=== PATIENT | male | born 1985 | race Caucasian/White ===

== ENCOUNTER 2022-09-08 13:52 | Inpatient (IN) | payer OTHER ==
[2022-09-08 15:23] VITALS: BMI 24.3
[2022-09-08] MEDS ORDERED: NICOTINE 10 MG CARTRIDGE (INHALER) IH PRN (17:34)
[2022-09-08] MEDS ORDERED: DICYCLOMINE HCL 10 MG CAPSULE PO PRN (17:34)
[2022-09-08] MEDS ORDERED: BISMUTH SUBSALICYLATE 524 MG/30 ML PO PRN (17:34)
[2022-09-08] MEDS ORDERED: ACETAMINOPHEN 325 MG TABLET (FP) PO PRN ×2 (17:34)
[2022-09-08] MEDS ORDERED: POLYETHYLENE GLYCOL (HEALTHYLAX) 3350 17 GM PACKET PO PRN (17:34)
[2022-09-08] MEDS ORDERED: MAG HYDROX/AL HYDROX/SIMETH 30 ML UNIT-DOSE CUP PO PRN (17:34)
[2022-09-08] MEDS ORDERED: MAGNESIUM HYDROX 2400MG/30ML ORAL SUSPENSION 30 ML CUP PO PRN (17:34)
[2022-09-08] MEDS ORDERED: BENZOCAINE/MENTHOL (CHLORASEPTIC ) LOZENGE MM PRN (17:34)
[2022-09-08] MEDS ORDERED: hydrOXYzine PAMOATE 25 MG CAPSULE (FP) PO PRN (17:34)
[2022-09-08] MEDS ORDERED: LOPERAMIDE HCL 2 MG CAPSULE PO PRN (17:34)
[2022-09-08] MEDS ORDERED: ONDANSETRON *ODT* 4 MG TABLET SL PRN (17:34)
[2022-09-08] MEDS ORDERED: levETIRAcetam 500 MG/5 ML ORAL SOLUTION (UNIT-DOSE CUPS) PO SCH (18:00)
[2022-09-08] MEDS ORDERED: LORazepam 2 MG TABLET PO ONE ×2 (18:30→20:00)
[2022-09-08] MEDS ORDERED: LORazepam 1 MG TABLET PO PRN (18:30)
[2022-09-08] MEDS: levETIRAcetam 500 MG/5 ML ORAL SOLUTION (UNIT-DOSE CUPS) PO SCH (21:21)
[2022-09-08] MEDS: LORazepam 2 MG TABLET PO SCH (23:28)
[2022-09-08] MEDS: MELATONIN 5 MG TABLETS PO SCH (23:29)
[2022-09-08] MEDS: THIAMINE HCL 100 MG TABLET (FP) PO SCH (23:29)
[2022-09-08] MEDS: lamoTRIgine 100 MG TABLET PO SCH (23:39)
[2022-09-09] MEDS: levETIRAcetam 500 MG/5 ML ORAL SOLUTION (UNIT-DOSE CUPS) PO SCH ×3 (06:23→20:34)
[2022-09-09] MEDS: lamoTRIgine 100 MG TABLET PO SCH ×3 (06:25→23:30)
[2022-09-09] MEDS: LORazepam 2 MG TABLET PO SCH ×4 (06:25→23:31)
[2022-09-09 09:28] LABS: HEMATOCRIT 39.4 % (35.4-49); HEMOGLOBIN 13.3 GM/dL (11.7-16.9); MCH 34.7 pg (25.7-33.7); MCHC 33.7 g/dl (32.0-35.9); MEAN CELL VOLUME 102.9 fl (80-96); PLATELET COUNT 105 10^3/uL (134-434); RBC 3.83 M/mm3 (4.00-5.60); RDW 14.9 % (11.9-15.9); WHITE BLOOD COUNT 2.9 K/mm3 (4.0-10.0)
[2022-09-09 10:16] LABS: ALBUMIN 3.7 g/dl (3.4-5.0); BLOOD UREA NITROGEN 9.7 mg/dL (7-18)
[2022-09-09 10:19] LABS: CREATININE 0.6 mg/dL (0.55-1.3)
[2022-09-09 10:21] LABS: BILIRUBIN,TOTAL 2.5 mg/dL (0.2-1); TOT PROT 7.2 g/dl (6.4-8.2)
[2022-09-09] MEDS: PRENATAL VITAMINS W/ FOLIC ACID TABLET (FP) PO SCH (10:45)
[2022-09-09] MEDS: NICOTINE 7 MG/24 HOURS TOPICAL PATCH TD SCH (10:46)
[2022-09-09] MEDS: THIAMINE HCL 100 MG TABLET (FP) PO SCH (23:30)
[2022-09-09] MEDS: MELATONIN 5 MG TABLETS PO SCH (23:31)
[2022-09-10] MEDS: LORazepam 1 MG TABLET PO SCH ×4 (05:58→22:47)
[2022-09-10] MEDS: lamoTRIgine 100 MG TABLET PO SCH ×3 (05:59→22:48)
[2022-09-10] MEDS: levETIRAcetam 500 MG/5 ML ORAL SOLUTION (UNIT-DOSE CUPS) PO SCH ×3 (06:00→17:42)
[2022-09-10] MEDS: NICOTINE 7 MG/24 HOURS TOPICAL PATCH TD SCH (10:41)
[2022-09-10] MEDS: PRENATAL VITAMINS W/ FOLIC ACID TABLET (FP) PO SCH (10:41)
[2022-09-10] MEDS: MELATONIN 5 MG TABLETS PO SCH (22:47)
[2022-09-10] MEDS: THIAMINE HCL 100 MG TABLET (FP) PO SCH (22:48)
[2022-09-11] MEDS ORDERED: LORazepam 0.5 MG TABLET PO PRN
[2022-09-11] MEDS: levETIRAcetam 500 MG/5 ML ORAL SOLUTION (UNIT-DOSE CUPS) PO SCH ×3 (06:16→17:20)
[2022-09-11] MEDS: LORazepam 0.5 MG TABLET PO SCH ×4 (06:17→22:54)
[2022-09-11] MEDS: lamoTRIgine 100 MG TABLET PO SCH ×3 (06:17→22:54)
[2022-09-11] MEDS: PRENATAL VITAMINS W/ FOLIC ACID TABLET (FP) PO SCH ×2 (10:38→10:42)
[2022-09-11] MEDS: NICOTINE 7 MG/24 HOURS TOPICAL PATCH TD SCH (10:39)
[2022-09-11 11:04] LABS: BILIRUBIN,DIRECT 0.6 mg/dL (0.0-0.2)
[2022-09-11 11:06] LABS: BILIRUBIN,TOTAL 1.2 mg/dL (0.2-1)
[2022-09-11] MEDS ORDERED: POTASSIUM CHLORIDE ORAL LIQUID 20 MEQ/15 ML PO ONE (13:30)
[2022-09-11] MEDS: MULTIVIT-MINERALS ORAL LIQUID PO SCH (13:38)
[2022-09-11] MEDS: LACTULOSE 20 GM/30 ML UDC (FOR ORAL USE ONLY) PO SCH ×3 (13:40→22:57)
[2022-09-11] MEDS: MELATONIN 5 MG TABLETS PO SCH (22:55)
[2022-09-11] MEDS: THIAMINE HCL 100 MG TABLET (FP) PO SCH (22:55)
[2022-09-11] MEDS: POTASSIUM CHLORIDE ORAL LIQUID 20 MEQ/15 ML PO SCH (22:57)
[2022-09-12] MEDS ORDERED: LORazepam 0.5 MG TABLET PO ONE (05:00)
[2022-09-12] MEDS: lamoTRIgine 100 MG TABLET PO SCH (05:48)
[2022-09-12] MEDS: levETIRAcetam 500 MG/5 ML ORAL SOLUTION (UNIT-DOSE CUPS) PO SCH ×2 (05:49→12:08)
[2022-09-12 09:14] VITALS: RESP 16
[2022-09-12] MEDS: MULTIVIT-MINERALS ORAL LIQUID PO SCH (10:37)
[2022-09-12] MEDS: POTASSIUM CHLORIDE ORAL LIQUID 20 MEQ/15 ML PO SCH (10:37)
[2022-09-12] MEDS: LACTULOSE 20 GM/30 ML UDC (FOR ORAL USE ONLY) PO SCH (10:37)
[2022-09-12] MEDS: NICOTINE 7 MG/24 HOURS TOPICAL PATCH TD SCH (10:43)
[2022-09-12 13:30] VITALS: BP 106/77; PULSE 97; TEMP 98
== END 2022-09-12 13:00 | disposition other institution (70) | DRG 775 ==
LOC: YASAS 13:52 → Y3N 18:48
PROVIDERS: ADMIT Allergy & Immunology; ATTEND Surgery
PROC: HZ2ZZZZ Detoxification Services for Substance Abuse Treatment (ICD-10-PCS; principal; 2022-09-09)
DX: F10.230 Alcohol dependence with withdrawal, uncomplicated (principal); F19.24 Other psychoactive substance dependence with psychoactive substance-induced mood disorder; F43.10 Post-traumatic stress disorder, unspecified; E87.6 Hypokalemia; G40.909 Epilepsy, unspecified, not intractable, without status epilepticus; D72.819 Decreased white blood cell count, unspecified; R74.8 Abnormal levels of other serum enzymes; Z87.891 Personal history of nicotine dependence; Z87.820 Personal history of traumatic brain injury; Z99.89 Dependence on other enabling machines and devices; Z56.0 Unemployment, unspecified; Z59.01 Sheltered homelessness; Z91.013 Allergy to seafood
CPT/HCPCS: 36415; 80053; 80177; 82140; 82247; 82248; 82728; 83540; 83550; 84132; 85027; 86780; 87811; C9803-CS; U0003; U0005

== ENCOUNTER 2022-09-12 13:17 | Inpatient (IN) | payer OTHER ==
[2022-09-12] MEDS ORDERED: P-EPHED 60MG/TRIPROLIDI 2.5MG TABLET PO PRN (15:10)
[2022-09-12] MEDS ORDERED: BENZOCAINE/MENTHOL (CHLORASEPTIC ) LOZENGE MM PRN (15:10)
[2022-09-12] MEDS ORDERED: POLYETHYLENE GLYCOL (HEALTHYLAX) 3350 17 GM PACKET PO PRN (15:10)
[2022-09-12] MEDS ORDERED: IBUPROFEN 400 MG TABLET (FP) PO PRN (15:10)
[2022-09-12] MEDS ORDERED: ACETAMINOPHEN 325 MG TABLET (FP) PO PRN (15:10)
[2022-09-12] MEDS ORDERED: MAGNESIUM HYDROX 2400MG/30ML ORAL SUSPENSION 30 ML CUP PO PRN (15:10)
[2022-09-12] MEDS ORDERED: MAG HYDROX/AL HYDROX/SIMETH 30 ML UNIT-DOSE CUP PO PRN (15:10)
[2022-09-12] MEDS ORDERED: guaiFENesin 200 MG/10 ML 10 ML UNIT-DOSE CUPS PO PRN (15:10)
[2022-09-12] MEDS ORDERED: LOPERAMIDE HCL 2 MG CAPSULE PO PRN (15:10)
[2022-09-12] MEDS: lamoTRIgine 100 MG TABLET PO SCH ×2 (15:45→21:46)
[2022-09-12] MEDS: LACTULOSE 20 GM/30 ML UDC (FOR ORAL USE ONLY) PO SCH ×2 (18:04→21:46)
[2022-09-12] MEDS: MELATONIN 5 MG TABLETS PO SCH (21:46)
[2022-09-12] MEDS: THIAMINE HCL 100 MG TABLET (FP) PO SCH (21:46)
[2022-09-12] MEDS: levETIRAcetam 500 MG/5 ML ORAL SOLUTION (UNIT-DOSE CUPS) PO SCH (21:49)
[2022-09-13] MEDS: lamoTRIgine 100 MG TABLET PO SCH ×3 (06:21→21:04)
[2022-09-13] MEDS: levETIRAcetam 500 MG/5 ML ORAL SOLUTION (UNIT-DOSE CUPS) PO SCH ×3 (06:22→18:35)
[2022-09-13] MEDS: LACTULOSE 20 GM/30 ML UDC (FOR ORAL USE ONLY) PO SCH ×2 (09:53→13:26)
[2022-09-13] MEDS: PRENATAL VITAMINS W/ FOLIC ACID TABLET (FP) PO SCH (09:56)
[2022-09-13] MEDS: MULTIVIT-MINERALS ORAL LIQUID PO SCH (09:56)
[2022-09-13 13:01] LABS: INR 1.09 (0.83-1.09); PROTHROMBIN TIME (PATIENT) 12.5 SEC (9.7-13.0)
[2022-09-13 13:16] LABS: ALBUMIN 3.8 g/dl (3.4-5.0); BLOOD UREA NITROGEN 8.3 mg/dL (7-18); CALCIUM 9.3 mg/dL (8.5-10.1)
[2022-09-13 13:19] LABS: BILIRUBIN,DIRECT 0.6 mg/dL (0.0-0.2); CREATININE 0.9 mg/dL (0.55-1.3); TOT PROT 7.2 g/dl (6.4-8.2)
[2022-09-13 13:21] LABS: BILIRUBIN,TOTAL 2.3 mg/dL (0.2-1)
[2022-09-13] MEDS ORDERED: POTASSIUM CHLORIDE TABS 20 MEQ TABLET.ER (FP) PO ONE ×3 (17:16→22:00)
[2022-09-13] MEDS: THIAMINE HCL 100 MG TABLET (FP) PO SCH (21:04)
[2022-09-13] MEDS: hydrOXYzine PAMOATE 25 MG CAPSULE (FP) PO PRN (21:04)
[2022-09-13] MEDS: MELATONIN 5 MG TABLETS PO SCH (21:04)
[2022-09-13] MEDS: RIFAXIMIN 550 MG TABLET PO SCH (21:06)
[2022-09-13] MEDS ORDERED: POTASSIUM CHLORIDE ORAL LIQUID 20 MEQ/15 ML PO SCH (22:00)
[2022-09-14] MEDS: levETIRAcetam 500 MG/5 ML ORAL SOLUTION (UNIT-DOSE CUPS) PO SCH ×3 (06:28→17:32)
[2022-09-14] MEDS: lamoTRIgine 100 MG TABLET PO SCH ×3 (06:28→21:23)
[2022-09-14] MEDS: RIFAXIMIN 550 MG TABLET PO SCH ×2 (09:06→21:23)
[2022-09-14] MEDS: MULTIVIT-MINERALS ORAL LIQUID PO SCH (09:08)
[2022-09-14] MEDS: PRENATAL VITAMINS W/ FOLIC ACID TABLET (FP) PO SCH (09:08)
[2022-09-14] MEDS ORDERED: POTASSIUM CHLORIDE TABS 20 MEQ TABLET.ER (FP) PO SCH ×2 (10:00→14:00)
[2022-09-14 12:17] LABS: CREATININE 0.7 mg/dL (0.55-1.3)
[2022-09-14 12:18] LABS: ALBUMIN 3.8 g/dl (3.4-5.0); BLOOD UREA NITROGEN 8.3 mg/dL (7-18)
[2022-09-14 12:19] LABS: TOT PROT 7.2 g/dl (6.4-8.2)
[2022-09-14 12:21] LABS: CALCIUM 9.3 mg/dL (8.5-10.1)
[2022-09-14] MEDS ORDERED: MULTIVIT-MINERALS ORAL LIQUID PO PRN (12:45)
[2022-09-14] MEDS: POTASSIUM CHLORIDE ORAL LIQUID 20 MEQ/15 ML PO SCH ×2 (14:14→17:32)
[2022-09-14] MEDS: MELATONIN 5 MG TABLETS PO SCH (21:23)
[2022-09-14] MEDS: THIAMINE HCL 100 MG TABLET (FP) PO SCH (21:23)
[2022-09-15] MEDS: lamoTRIgine 100 MG TABLET PO SCH ×3 (06:32→21:32)
[2022-09-15] MEDS: levETIRAcetam 500 MG/5 ML ORAL SOLUTION (UNIT-DOSE CUPS) PO SCH ×3 (06:32→18:30)
[2022-09-15] MEDS: RIFAXIMIN 550 MG TABLET PO SCH ×2 (10:04→21:33)
[2022-09-15] MEDS: POTASSIUM CHLORIDE ORAL LIQUID 20 MEQ/15 ML PO SCH (10:06)
[2022-09-15] MEDS: MELATONIN 5 MG TABLETS PO SCH (21:32)
[2022-09-15] MEDS: THIAMINE HCL 100 MG TABLET (FP) PO SCH (21:33)
[2022-09-16] MEDS: lamoTRIgine 100 MG TABLET PO SCH ×3 (06:47→21:46)
[2022-09-16] MEDS: levETIRAcetam 500 MG/5 ML ORAL SOLUTION (UNIT-DOSE CUPS) PO SCH ×4 (06:47→18:31)
[2022-09-16] MEDS: RIFAXIMIN 550 MG TABLET PO SCH ×2 (09:37→21:46)
[2022-09-16] MEDS: THIAMINE HCL 100 MG TABLET (FP) PO SCH (21:47)
[2022-09-16] MEDS: MELATONIN 5 MG TABLETS PO SCH (21:47)
[2022-09-17] MEDS: lamoTRIgine 100 MG TABLET PO SCH ×3 (06:24→21:46)
[2022-09-17] MEDS: levETIRAcetam 500 MG/5 ML ORAL SOLUTION (UNIT-DOSE CUPS) PO SCH ×3 (06:25→17:59)
[2022-09-17] MEDS: RIFAXIMIN 550 MG TABLET PO SCH ×2 (10:06→21:46)
[2022-09-17] MEDS: MELATONIN 5 MG TABLETS PO SCH (21:46)
[2022-09-17] MEDS: THIAMINE HCL 100 MG TABLET (FP) PO SCH (21:46)
[2022-09-18] MEDS: levETIRAcetam 500 MG/5 ML ORAL SOLUTION (UNIT-DOSE CUPS) PO SCH ×3 (06:22→18:02)
[2022-09-18] MEDS: lamoTRIgine 100 MG TABLET PO SCH ×3 (06:22→21:45)
[2022-09-18] MEDS: RIFAXIMIN 550 MG TABLET PO SCH ×2 (09:51→22:52)
[2022-09-18] MEDS: THIAMINE HCL 100 MG TABLET (FP) PO SCH (21:45)
[2022-09-18] MEDS: MELATONIN 5 MG TABLETS PO SCH (21:45)
[2022-09-19] MEDS: levETIRAcetam 500 MG/5 ML ORAL SOLUTION (UNIT-DOSE CUPS) PO SCH ×3 (06:08→18:07)
[2022-09-19] MEDS: lamoTRIgine 100 MG TABLET PO SCH ×3 (06:08→21:41)
[2022-09-19] MEDS: RIFAXIMIN 550 MG TABLET PO SCH ×2 (09:51→21:43)
[2022-09-19] MEDS: MELATONIN 5 MG TABLETS PO SCH (21:41)
[2022-09-19] MEDS: THIAMINE HCL 100 MG TABLET (FP) PO SCH (21:41)
[2022-09-20] MEDS: lamoTRIgine 100 MG TABLET PO SCH ×3 (06:17→21:29)
[2022-09-20] MEDS: levETIRAcetam 500 MG/5 ML ORAL SOLUTION (UNIT-DOSE CUPS) PO SCH ×3 (06:17→18:20)
[2022-09-20] MEDS: RIFAXIMIN 550 MG TABLET PO SCH ×2 (10:07→21:29)
[2022-09-20] MEDS: MULTIVIT-MINERALS ORAL LIQUID PO SCH (11:15)
[2022-09-20] MEDS: MELATONIN 5 MG TABLETS PO SCH (21:29)
[2022-09-20] MEDS: THIAMINE HCL 100 MG TABLET (FP) PO SCH (21:29)
[2022-09-21] MEDS: lamoTRIgine 100 MG TABLET PO SCH ×3 (06:37→21:23)
[2022-09-21] MEDS: levETIRAcetam 500 MG/5 ML ORAL SOLUTION (UNIT-DOSE CUPS) PO SCH ×4 (06:38→18:02)
[2022-09-21] MEDS: MULTIVIT-MINERALS ORAL LIQUID PO SCH (09:24)
[2022-09-21] MEDS: hydrOXYzine PAMOATE 25 MG CAPSULE (FP) PO PRN (21:23)
[2022-09-21] MEDS: MELATONIN 5 MG TABLETS PO SCH (21:23)
[2022-09-21] MEDS: THIAMINE HCL 100 MG TABLET (FP) PO SCH (21:23)
[2022-09-21] MEDS: RIFAXIMIN 550 MG TABLET PO SCH (21:25)
[2022-09-22] MEDS: lamoTRIgine 100 MG TABLET PO SCH ×3 (06:20→21:24)
[2022-09-22] MEDS: levETIRAcetam 500 MG/5 ML ORAL SOLUTION (UNIT-DOSE CUPS) PO SCH ×3 (06:21→18:02)
[2022-09-22] MEDS: MULTIVIT-MINERALS ORAL LIQUID PO SCH (09:48)
[2022-09-22] MEDS: RIFAXIMIN 550 MG TABLET PO SCH ×2 (09:49→21:26)
[2022-09-22] MEDS: SELENIUM SULFIDE 2.25% 180 ML SHAMPOO TP SCH (09:50)
[2022-09-22] MEDS: MELATONIN 5 MG TABLETS PO SCH (21:24)
[2022-09-22] MEDS: THIAMINE HCL 100 MG TABLET (FP) PO SCH (21:25)
[2022-09-22] MEDS: hydrOXYzine PAMOATE 25 MG CAPSULE (FP) PO PRN (21:27)
[2022-09-23] MEDS: levETIRAcetam 500 MG/5 ML ORAL SOLUTION (UNIT-DOSE CUPS) PO SCH ×3 (06:22→18:05)
[2022-09-23] MEDS: lamoTRIgine 100 MG TABLET PO SCH ×3 (06:22→21:28)
[2022-09-23] MEDS: RIFAXIMIN 550 MG TABLET PO SCH ×2 (09:45→21:28)
[2022-09-23] MEDS: MULTIVIT-MINERALS ORAL LIQUID PO SCH (09:46)
[2022-09-23] MEDS: SELENIUM SULFIDE 2.25% 180 ML SHAMPOO TP SCH (09:47)
[2022-09-23] MEDS: MELATONIN 5 MG TABLETS PO SCH (21:28)
[2022-09-23] MEDS: THIAMINE HCL 100 MG TABLET (FP) PO SCH (21:28)
[2022-09-24] MEDS: levETIRAcetam 500 MG/5 ML ORAL SOLUTION (UNIT-DOSE CUPS) PO SCH ×3 (06:08→18:48)
[2022-09-24] MEDS: lamoTRIgine 100 MG TABLET PO SCH ×3 (06:08→21:26)
[2022-09-24] MEDS: MULTIVIT-MINERALS ORAL LIQUID PO SCH (09:06)
[2022-09-24] MEDS: RIFAXIMIN 550 MG TABLET PO SCH ×2 (09:07→21:26)
[2022-09-24] MEDS: SELENIUM SULFIDE 2.25% 180 ML SHAMPOO TP SCH (09:07)
[2022-09-24] MEDS: THIAMINE HCL 100 MG TABLET (FP) PO SCH (21:26)
[2022-09-24] MEDS: MELATONIN 5 MG TABLETS PO SCH (21:26)
[2022-09-25] MEDS: levETIRAcetam 500 MG/5 ML ORAL SOLUTION (UNIT-DOSE CUPS) PO SCH ×3 (06:20→17:27)
[2022-09-25] MEDS: lamoTRIgine 100 MG TABLET PO SCH ×3 (06:20→21:06)
[2022-09-25] MEDS: MULTIVIT-MINERALS ORAL LIQUID PO SCH (10:06)
[2022-09-25] MEDS: SELENIUM SULFIDE 2.25% 180 ML SHAMPOO TP SCH (10:06)
[2022-09-25] MEDS: RIFAXIMIN 550 MG TABLET PO SCH ×2 (10:06→21:06)
[2022-09-25] MEDS: THIAMINE HCL 100 MG TABLET (FP) PO SCH (21:06)
[2022-09-25] MEDS: MELATONIN 5 MG TABLETS PO SCH (21:06)
[2022-09-26] MEDS: lamoTRIgine 100 MG TABLET PO SCH ×3 (06:22→21:41)
[2022-09-26] MEDS: levETIRAcetam 500 MG/5 ML ORAL SOLUTION (UNIT-DOSE CUPS) PO SCH ×3 (06:22→18:04)
[2022-09-26] MEDS: RIFAXIMIN 550 MG TABLET PO SCH ×2 (09:52→21:41)
[2022-09-26] MEDS: SELENIUM SULFIDE 2.25% 180 ML SHAMPOO TP SCH (09:53)
[2022-09-26] MEDS: MULTIVIT-MINERALS ORAL LIQUID PO SCH (09:53)
[2022-09-26] MEDS: MELATONIN 5 MG TABLETS PO SCH (21:41)
[2022-09-26] MEDS: THIAMINE HCL 100 MG TABLET (FP) PO SCH (21:41)
[2022-09-27] MEDS: levETIRAcetam 500 MG/5 ML ORAL SOLUTION (UNIT-DOSE CUPS) PO SCH ×3 (06:10→18:15)
[2022-09-27] MEDS: lamoTRIgine 100 MG TABLET PO SCH ×3 (06:10→21:28)
[2022-09-27] MEDS: RIFAXIMIN 550 MG TABLET PO SCH ×2 (09:03→21:28)
[2022-09-27] MEDS: MULTIVIT-MINERALS ORAL LIQUID PO SCH (09:04)
[2022-09-27] MEDS: SELENIUM SULFIDE 2.25% 180 ML SHAMPOO TP SCH (09:05)
[2022-09-27 11:06] LABS: CALCIUM 9.5 mg/dL (8.5-10.1)
[2022-09-27 11:07] LABS: ALBUMIN 3.7 g/dl (3.4-5.0)
[2022-09-27 11:09] LABS: CREATININE 0.7 mg/dL (0.55-1.3)
[2022-09-27 11:11] LABS: BILIRUBIN,TOTAL 1.1 mg/dL (0.2-1); TOT PROT 7.2 g/dl (6.4-8.2)
[2022-09-27] MEDS: MELATONIN 5 MG TABLETS PO SCH (21:28)
[2022-09-27] MEDS: THIAMINE HCL 100 MG TABLET (FP) PO SCH (21:28)
[2022-09-28] MEDS: lamoTRIgine 100 MG TABLET PO SCH ×3 (06:56→21:26)
[2022-09-28] MEDS: levETIRAcetam 500 MG/5 ML ORAL SOLUTION (UNIT-DOSE CUPS) PO SCH ×3 (06:56→18:20)
[2022-09-28] MEDS: RIFAXIMIN 550 MG TABLET PO SCH ×2 (09:37→21:26)
[2022-09-28] MEDS: SELENIUM SULFIDE 2.25% 180 ML SHAMPOO TP SCH (09:38)
[2022-09-28] MEDS: MULTIVIT-MINERALS ORAL LIQUID PO SCH (09:38)
[2022-09-28] MEDS: THIAMINE HCL 100 MG TABLET (FP) PO SCH (21:26)
[2022-09-28] MEDS: MELATONIN 5 MG TABLETS PO SCH (21:26)
[2022-09-29] MEDS: lamoTRIgine 100 MG TABLET PO SCH ×3 (06:56→21:19)
[2022-09-29] MEDS: levETIRAcetam 500 MG/5 ML ORAL SOLUTION (UNIT-DOSE CUPS) PO SCH ×3 (06:56→18:21)
[2022-09-29] MEDS: MULTIVIT-MINERALS ORAL LIQUID PO SCH (10:04)
[2022-09-29] MEDS: RIFAXIMIN 550 MG TABLET PO SCH ×2 (10:04→21:20)
[2022-09-29] MEDS: THIAMINE HCL 100 MG TABLET (FP) PO SCH (21:19)
[2022-09-29] MEDS: MELATONIN 5 MG TABLETS PO SCH (21:19)
[2022-09-30] MEDS: levETIRAcetam 500 MG/5 ML ORAL SOLUTION (UNIT-DOSE CUPS) PO SCH ×3 (06:13→17:59)
[2022-09-30] MEDS: lamoTRIgine 100 MG TABLET PO SCH ×3 (06:13→21:30)
[2022-09-30] MEDS: MULTIVIT-MINERALS ORAL LIQUID PO SCH (09:59)
[2022-09-30] MEDS: RIFAXIMIN 550 MG TABLET PO SCH ×2 (09:59→21:30)
[2022-09-30] MEDS: THIAMINE HCL 100 MG TABLET (FP) PO SCH (21:30)
[2022-09-30] MEDS: MELATONIN 5 MG TABLETS PO SCH (21:30)
[2022-10-01] MEDS: lamoTRIgine 100 MG TABLET PO SCH ×3 (06:46→21:44)
[2022-10-01] MEDS: levETIRAcetam 500 MG/5 ML ORAL SOLUTION (UNIT-DOSE CUPS) PO SCH ×3 (06:47→18:06)
[2022-10-01] MEDS: RIFAXIMIN 550 MG TABLET PO SCH ×2 (09:41→21:44)
[2022-10-01] MEDS: MULTIVIT-MINERALS ORAL LIQUID PO SCH (09:42)
[2022-10-01] MEDS: MELATONIN 5 MG TABLETS PO SCH (21:44)
[2022-10-01] MEDS: THIAMINE HCL 100 MG TABLET (FP) PO SCH (21:44)
[2022-10-02] MEDS: levETIRAcetam 500 MG/5 ML ORAL SOLUTION (UNIT-DOSE CUPS) PO SCH ×3 (06:23→19:00)
[2022-10-02] MEDS: lamoTRIgine 100 MG TABLET PO SCH ×3 (06:23→21:10)
[2022-10-02] MEDS: MULTIVIT-MINERALS ORAL LIQUID PO SCH (09:58)
[2022-10-02] MEDS: RIFAXIMIN 550 MG TABLET PO SCH ×2 (09:59→21:10)
[2022-10-02] MEDS: THIAMINE HCL 100 MG TABLET (FP) PO SCH (21:10)
[2022-10-02] MEDS: MELATONIN 5 MG TABLETS PO SCH (21:10)
[2022-10-03] MEDS: lamoTRIgine 100 MG TABLET PO SCH ×3 (06:06→21:25)
[2022-10-03] MEDS: levETIRAcetam 500 MG/5 ML ORAL SOLUTION (UNIT-DOSE CUPS) PO SCH ×3 (06:06→18:06)
[2022-10-03] MEDS: MULTIVIT-MINERALS ORAL LIQUID PO SCH (10:01)
[2022-10-03] MEDS: RIFAXIMIN 550 MG TABLET PO SCH ×2 (10:01→21:26)
[2022-10-03] MEDS: MELATONIN 5 MG TABLETS PO SCH (21:25)
[2022-10-03] MEDS: THIAMINE HCL 100 MG TABLET (FP) PO SCH (21:25)
[2022-10-04] MEDS: levETIRAcetam 500 MG/5 ML ORAL SOLUTION (UNIT-DOSE CUPS) PO SCH ×3 (06:18→17:39)
[2022-10-04] MEDS: lamoTRIgine 100 MG TABLET PO SCH ×3 (06:18→21:16)
[2022-10-04] MEDS: MULTIVIT-MINERALS ORAL LIQUID PO SCH (09:57)
[2022-10-04] MEDS: RIFAXIMIN 550 MG TABLET PO SCH ×2 (09:57→21:16)
[2022-10-04] MEDS: MELATONIN 5 MG TABLETS PO SCH (21:16)
[2022-10-04] MEDS: THIAMINE HCL 100 MG TABLET (FP) PO SCH (21:16)
[2022-10-05] MEDS: levETIRAcetam 500 MG/5 ML ORAL SOLUTION (UNIT-DOSE CUPS) PO SCH ×3 (06:21→19:07)
[2022-10-05] MEDS: lamoTRIgine 100 MG TABLET PO SCH ×3 (06:21→21:25)
[2022-10-05] MEDS: RIFAXIMIN 550 MG TABLET PO SCH ×2 (09:42→21:26)
[2022-10-05] MEDS: MULTIVIT-MINERALS ORAL LIQUID PO SCH (09:42)
[2022-10-05] MEDS: THIAMINE HCL 100 MG TABLET (FP) PO SCH (21:23)
[2022-10-05] MEDS: MELATONIN 5 MG TABLETS PO SCH (21:23)
[2022-10-06] MEDS: levETIRAcetam 500 MG/5 ML ORAL SOLUTION (UNIT-DOSE CUPS) PO SCH ×3 (06:21→18:05)
[2022-10-06] MEDS: lamoTRIgine 100 MG TABLET PO SCH ×3 (06:21→21:36)
[2022-10-06] MEDS: RIFAXIMIN 550 MG TABLET PO SCH ×2 (09:53→21:38)
[2022-10-06] MEDS: MULTIVIT-MINERALS ORAL LIQUID PO SCH (09:55)
[2022-10-06] MEDS: MELATONIN 5 MG TABLETS PO SCH (21:36)
[2022-10-06] MEDS: THIAMINE HCL 100 MG TABLET (FP) PO SCH (21:37)
[2022-10-07] MEDS: lamoTRIgine 100 MG TABLET PO SCH ×3 (06:17→21:31)
[2022-10-07] MEDS: levETIRAcetam 500 MG/5 ML ORAL SOLUTION (UNIT-DOSE CUPS) PO SCH ×3 (06:18→18:00)
[2022-10-07] MEDS: RIFAXIMIN 550 MG TABLET PO SCH ×2 (10:30→21:32)
[2022-10-07] MEDS: MULTIVIT-MINERALS ORAL LIQUID PO SCH (10:30)
[2022-10-07] MEDS: MELATONIN 5 MG TABLETS PO SCH (21:31)
[2022-10-07] MEDS: THIAMINE HCL 100 MG TABLET (FP) PO SCH (21:31)
[2022-10-08] MEDS: lamoTRIgine 100 MG TABLET PO SCH ×3 (06:16→21:23)
[2022-10-08] MEDS: levETIRAcetam 500 MG/5 ML ORAL SOLUTION (UNIT-DOSE CUPS) PO SCH ×3 (06:16→17:41)
[2022-10-08] MEDS: RIFAXIMIN 550 MG TABLET PO SCH ×2 (10:11→21:22)
[2022-10-08] MEDS: MULTIVIT-MINERALS ORAL LIQUID PO SCH (10:12)
[2022-10-08] MEDS ORDERED: LORazepam 2 MG/ML SDV VIAL IM ONE (10:24)
[2022-10-08] MEDS: MELATONIN 5 MG TABLETS PO SCH (21:21)
[2022-10-08] MEDS: THIAMINE HCL 100 MG TABLET (FP) PO SCH (21:21)
[2022-10-09] MEDS: levETIRAcetam 500 MG/5 ML ORAL SOLUTION (UNIT-DOSE CUPS) PO SCH ×3 (06:17→19:00)
[2022-10-09] MEDS: lamoTRIgine 100 MG TABLET PO SCH ×3 (06:18→21:12)
[2022-10-09] MEDS: RIFAXIMIN 550 MG TABLET PO SCH ×2 (10:30→21:12)
[2022-10-09] MEDS: MULTIVIT-MINERALS ORAL LIQUID PO SCH (10:30)
[2022-10-09 11:45] VITALS: RESP 18
[2022-10-09] MEDS: THIAMINE HCL 100 MG TABLET (FP) PO SCH (21:11)
[2022-10-09] MEDS: MELATONIN 5 MG TABLETS PO SCH (21:11)
[2022-10-10] MEDS: levETIRAcetam 500 MG/5 ML ORAL SOLUTION (UNIT-DOSE CUPS) PO SCH (06:24)
[2022-10-10] MEDS: lamoTRIgine 100 MG TABLET PO SCH (06:25)
[2022-10-10 06:56] VITALS: BP 114/86; PULSE 77; TEMP 97.8
[2022-10-10] MEDS: MULTIVIT-MINERALS ORAL LIQUID PO SCH (09:19)
[2022-10-10] MEDS: RIFAXIMIN 550 MG TABLET PO SCH (09:19)
== END 2022-10-10 09:23 | disposition home or self-care (01) | DRG 772 ==
LOC: YASAS 13:17 → Y3E 13:18
PROVIDERS: ADMIT Allergy & Immunology; ATTEND Psychiatry & Neurology Pain Medicine
PROC: HZ42ZZZ Group Counseling for Substance Abuse Treatment, Cognitive-Behavioral (ICD-10-PCS; principal; 2022-09-12)
DX: F10.20 Alcohol dependence, uncomplicated (principal); F17.210 Nicotine dependence, cigarettes, uncomplicated; E72.20 Disorder of urea cycle metabolism, unspecified; E87.6 Hypokalemia; E80.6 Other disorders of bilirubin metabolism; G40.909 Epilepsy, unspecified, not intractable, without status epilepticus; D64.9 Anemia, unspecified; Z99.89 Dependence on other enabling machines and devices
CPT/HCPCS: 36415; 80053; 82140; 82248; 82607; 82728; 82746; 82977; 83036; 84132; 84466; 85610; 86803

== ENCOUNTER 2022-10-08 11:05 | Emergency (ER) | payer OTHER ==
[2022-10-08 11:31] VITALS: RESP 18; BMI 23.6
[2022-10-08] MEDS ORDERED: levETIRAcetam 500 MG TABLET (FP) PO ONE ×2 (12:35→12:48)
[2022-10-08] MEDS ORDERED: lamoTRIgine 100 MG TABLET PO ONE (14:10)
[2022-10-08] MEDS ORDERED: lamoTRIgine 100 MG TABLET ONE (14:16)
[2022-10-08] MEDS ORDERED: lamoTRIgine 25 MG TABLET ONE (14:16)
[2022-10-08 15:01] VITALS: BP 114/76; PULSE 109; TEMP 97.7
== END 2022-10-08 16:12 | disposition home or self-care (01) ==
LOC: JER 11:05
DX: G40.89 Other seizures (principal)
CPT/HCPCS: 36415; 80175; 80177; 93005; 93010; 99284-25

== ENCOUNTER 2022-10-17 01:13 | Inpatient (IN) | payer OTHER ==
[2022-10-17] MEDS ORDERED: levETIRAcetam 500 MG/5 ML INJECTION VIAL IVPB ONE ×2 (01:58→02:24)
[2022-10-17 03:00] LABS: BASO % 1.8 % (0-2.0); EOS % 1.2 % (0-4.5); LYMPH % 56.2 % (8-40); MCH 35.1 pg (25.7-33.7); MCHC 34.4 g/dl (32.0-35.9); MEAN CELL VOLUME 102.2 fl (80-96); MEAN PLT VOLUME 9.3 fl (7.5-11.1); MONO % 10.1 % (3.8-10.2); NEUT % 30.7 % (42.8-82.8); PLATELET COUNT 184 10^3/uL (134-434); RBC 3.72 M/mm3 (4.00-5.60); RDW 13.8 % (11.9-15.9); WHITE BLOOD COUNT 3.7 K/mm3 (4.0-10.0)
[2022-10-17 03:20] LABS: ALBUMIN 3.8 g/dl (3.4-5.0)
[2022-10-17 03:23] LABS: CREATININE 0.6 mg/dL (0.55-1.3)
[2022-10-17 03:24] LABS: BILIRUBIN,TOTAL 0.3 mg/dL (0.2-1)
[2022-10-17 05:34] LABS: MAGNESIUM 1.5 mg/dL (1.8-2.4)
[2022-10-17 05:38] LABS: PHOSPHOROUS 4.2 mg/dL (2.5-4.9)
[2022-10-17] MEDS ORDERED: MAGNESIUM SULF 50% (8.12 MEQ/2 ML-1 GM VIAL) IVPB ONE (05:51)
[2022-10-17] MEDS ORDERED: MAGNESIUM SULFATE IN WATER 2 GM/50 ML IVPB IVPB ONE (06:20)
[2022-10-17] MEDS: FOLIC ACID INJECTION - 1 MG, THIAMINE HCL 100 MG, MULTIVIT INJECTION ADULT 10 ML in SOD... IVPB ONE ×2 (06:27→10:26)
[2022-10-17] MEDS ORDERED: THIAMINE HCL 100 MG TABLET (FP) ONE (09:38)
[2022-10-17] MEDS ORDERED: FOLIC ACID 1 MG TABLET (FP) ONE (09:39)
[2022-10-17] MEDS ORDERED: ENOXAPARIN NA (PORCINE) 40 MG/0.4 ML DISP.SYRIN SQ ONE (09:39)
[2022-10-17 10:03] LABS: BASO % 1.1 % (0-2.0); EOS % 1.3 % (0-4.5); HEMOGLOBIN 12.8 GM/dL (11.7-16.9); LYMPH % 48.9 % (8-40); MCH 34.4 pg (25.7-33.7); MCHC 33.8 g/dl (32.0-35.9); MEAN CELL VOLUME 101.8 fl (80-96); MEAN PLT VOLUME 9.9 fl (7.5-11.1); MONO % 10.4 % (3.8-10.2); NEUT % 38.3 % (42.8-82.8); PLATELET COUNT 188 10^3/uL (134-434); RBC 3.73 M/mm3 (4.00-5.60); RDW 13.7 % (11.9-15.9); WHITE BLOOD COUNT 3.8 K/mm3 (4.0-10.0)
[2022-10-17] MEDS ORDERED: lamoTRIgine 100 MG TABLET PO ONE (10:20)
[2022-10-17 10:26] LABS: ALBUMIN 3.5 g/dl (3.4-5.0); CALCIUM 8.4 mg/dL (8.5-10.1)
[2022-10-17] MEDS: ENOXAPARIN NA (PORCINE) 40 MG/0.4 ML DISP.SYRIN SQ SCH (10:26)
[2022-10-17 10:27] LABS: BLOOD UREA NITROGEN 6.2 mg/dL (7-18)
[2022-10-17 10:30] LABS: CREATININE 0.5 mg/dL (0.55-1.3); PHOSPHOROUS 3.9 mg/dL (2.5-4.9)
[2022-10-17] MEDS ORDERED: lamoTRIgine 25 MG TABLET PO SCH (10:30)
[2022-10-17 10:31] LABS: BILIRUBIN,TOTAL 0.4 mg/dL (0.2-1); TOT PROT 6.7 g/dl (6.4-8.2)
[2022-10-17] MEDS ORDERED: lamoTRIgine 100 MG TABLET ONE (12:09)
[2022-10-17] MEDS ORDERED: LORazepam 1 MG TABLET PO ONE ×2 (12:10→17:51)
[2022-10-17] MEDS: THIAMINE HCL 100 MG TABLET (FP) PO SCH (12:15)
[2022-10-17] MEDS: FOLIC ACID 1 MG TABLET (FP) PO SCH (12:15)
[2022-10-17] MEDS ORDERED: LORazepam 1 MG TABLET ONE (12:17)
[2022-10-17 13:15] VITALS: BMI 25.8
[2022-10-17] MEDS: lamoTRIgine 25 MG TABLET PO SCH ×2 (13:35→21:17)
[2022-10-17] MEDS ORDERED: LORazepam 2 MG/ML SDV VIAL IVPUSH PRN (18:41)
[2022-10-18] MEDS: lamoTRIgine 25 MG TABLET PO SCH ×2 (05:09→13:20)
[2022-10-18] MEDS: FOLIC ACID 1 MG TABLET (FP) PO SCH (09:31)
[2022-10-18] MEDS: THIAMINE HCL 100 MG TABLET (FP) PO SCH (09:31)
[2022-10-18] MEDS: ENOXAPARIN NA (PORCINE) 40 MG/0.4 ML DISP.SYRIN SQ SCH (09:32)
[2022-10-18] MEDS ORDERED: LORazepam 1 MG TABLET PO PRN ×2 (11:00→13:35)
[2022-10-18] MEDS ORDERED: LORazepam 2 MG TABLET PO PRN (13:32)
[2022-10-18] MEDS ORDERED: LORazepam 2 MG/ML SDV VIAL IVPUSH PRN (13:33)
[2022-10-18] MEDS: levETIRAcetam 500 MG/5 ML INJECTION VIAL IVPB SCH ×2 (13:46→21:09)
[2022-10-18] MEDS ORDERED: lamoTRIgine 25 MG TABLET PO SCH (15:33)
[2022-10-18] MEDS: LAMOTRIGINE 100 MG, LAMOTRIGINE 50 MG PO SCH ×2 (16:08→21:09)
[2022-10-18] MEDS: levETIRAcetam 500 MG/5 ML ORAL SOLUTION (UNIT-DOSE CUPS) PO SCH (17:44)
[2022-10-19 01:15] VITALS: RESP 18
[2022-10-19] MEDS: levETIRAcetam 500 MG/5 ML ORAL SOLUTION (UNIT-DOSE CUPS) PO SCH ×4 (05:54→18:32)
[2022-10-19] MEDS: LAMOTRIGINE 100 MG, LAMOTRIGINE 50 MG PO SCH ×3 (05:54→22:08)
[2022-10-19] MEDS ORDERED: PROCHLORPERAZINE INJECTION 10 MG/2 ML VIAL IVPB PRN (07:50)
[2022-10-19] MEDS ORDERED: ACETAMINOPHEN 325 MG TABLET (FP) PO PRN (07:51)
[2022-10-19] MEDS ORDERED: FAMOTIDINE 20 MG/50 ML IVPB 20 MG/50 ML MG IVPB ONE (07:51)
[2022-10-19] MEDS: ENOXAPARIN NA (PORCINE) 40 MG/0.4 ML DISP.SYRIN SQ SCH (10:23)
[2022-10-19] MEDS: FOLIC ACID 1 MG TABLET (FP) PO SCH (10:24)
[2022-10-19] MEDS: THIAMINE HCL 100 MG TABLET (FP) PO SCH (10:24)
[2022-10-19] MEDS: PANTOPRAZOLE SODIUM 40 MG VIAL IVPUSH SCH ×2 (10:26→22:09)
[2022-10-19] MEDS: MAG HYDROX/AL HYDROX/SIMETH 30 ML UNIT-DOSE CUP PO SCH ×2 (12:08→18:24)
[2022-10-19 13:40] LABS: BASO % 0.8 % (0-2.0); EOS % 1.2 % (0-4.5); HEMATOCRIT 37.1 % (35.4-49); LYMPH % 30.2 % (8-40); MCH 35.5 pg (25.7-33.7); MCHC 35.2 g/dl (32.0-35.9); MEAN CELL VOLUME 100.9 fl (80-96); MEAN PLT VOLUME 10.4 fl (7.5-11.1); MONO % 11.7 % (3.8-10.2); NEUT % 56.1 % (42.8-82.8); PLATELET COUNT 148 10^3/uL (134-434); RBC 3.67 M/mm3 (4.00-5.60); RDW 13.5 % (11.9-15.9); WHITE BLOOD COUNT 3.5 K/mm3 (4.0-10.0)
[2022-10-19 14:01] LABS: BLOOD UREA NITROGEN 4.4 mg/dL (7-18); CALCIUM 9.1 mg/dL (8.5-10.1); MAGNESIUM 1.6 mg/dL (1.8-2.4)
[2022-10-19 14:03] LABS: ALBUMIN 3.7 g/dl (3.4-5.0)
[2022-10-19 14:05] LABS: PHOSPHOROUS 2.8 mg/dL (2.5-4.9)
[2022-10-19 14:06] LABS: BILIRUBIN,TOTAL 0.9 mg/dL (0.2-1)
[2022-10-19 14:16] LABS: CREATININE 0.5 mg/dL (0.55-1.3)
[2022-10-19] MEDS ORDERED: MAGNESIUM SULFATE IN WATER 2 GM/50 ML IVPB IVPB ONE (15:00)
[2022-10-20] MEDS: MAG HYDROX/AL HYDROX/SIMETH 30 ML UNIT-DOSE CUP PO SCH ×3 (03:04→11:15)
[2022-10-20] MEDS: LAMOTRIGINE 100 MG, LAMOTRIGINE 50 MG PO SCH ×2 (05:58→13:03)
[2022-10-20] MEDS: levETIRAcetam 500 MG/5 ML ORAL SOLUTION (UNIT-DOSE CUPS) PO SCH ×2 (05:59→11:14)
[2022-10-20] MEDS: FOLIC ACID 1 MG TABLET (FP) PO SCH (09:58)
[2022-10-20] MEDS: PANTOPRAZOLE SODIUM 40 MG VIAL IVPUSH SCH (09:58)
[2022-10-20] MEDS: ENOXAPARIN NA (PORCINE) 40 MG/0.4 ML DISP.SYRIN SQ SCH (09:58)
[2022-10-20] MEDS: THIAMINE HCL 100 MG TABLET (FP) PO SCH (09:58)
[2022-10-20 12:09] LABS: BASO % 0.7 % (0-2.0); EOS % 2.6 % (0-4.5); HEMATOCRIT 39.2 % (35.4-49); HEMOGLOBIN 13.9 GM/dL (11.7-16.9); LYMPH % 24.5 % (8-40); MCH 35.9 pg (25.7-33.7); MCHC 35.5 g/dl (32.0-35.9); MEAN CELL VOLUME 101.1 fl (80-96); MEAN PLT VOLUME 10.2 fl (7.5-11.1); MONO % 9.1 % (3.8-10.2); NEUT % 63.1 % (42.8-82.8); PLATELET COUNT 167 10^3/uL (134-434); RBC 3.88 M/mm3 (4.00-5.60); RDW 13.6 % (11.9-15.9); WHITE BLOOD COUNT 5.4 K/mm3 (4.0-10.0)
[2022-10-20 12:32] LABS: ALBUMIN 3.9 g/dl (3.4-5.0); CALCIUM 9.2 mg/dL (8.5-10.1); MAGNESIUM 2.2 mg/dL (1.8-2.4)
[2022-10-20 12:35] LABS: CREATININE 0.6 mg/dL (0.55-1.3); PHOSPHOROUS 2.4 mg/dL (2.5-4.9)
[2022-10-20 12:37] LABS: BILIRUBIN,TOTAL 0.8 mg/dL (0.2-1); TOT PROT 7.3 g/dl (6.4-8.2)
[2022-10-20 14:09] VITALS: BP 105/75; PULSE 110; TEMP 97.4
== END 2022-10-20 15:48 | disposition other institution (70) | DRG 774 ==
LOC: JER 01:13 → JERBED 02:04 → OBSVTOIN 06:02 → J4S 13:31
PROVIDERS: ADMIT Internal Medicine
DX: F10.239 Alcohol dependence with withdrawal, unspecified (principal); F14.10 Cocaine abuse, uncomplicated; F39 Unspecified mood [affective] disorder; F10.220 Alcohol dependence with intoxication, uncomplicated; G40.909 Epilepsy, unspecified, not intractable, without status epilepticus; S01.312A Laceration without foreign body of left ear, initial encounter; W19.XXXA Unspecified fall, initial encounter; F17.210 Nicotine dependence, cigarettes, uncomplicated; E86.0 Dehydration; R74.01 Elevation of levels of liver transaminase levels; R94.31 Abnormal electrocardiogram [ECG] [EKG]; D72.819 Decreased white blood cell count, unspecified; D75.89 Other specified diseases of blood and blood-forming organs; K29.20 Alcoholic gastritis without bleeding; K21.9 Gastro-esophageal reflux disease without esophagitis; Y93.89 Activity, other specified; Y99.8 Other external cause status; Y92.89 Other specified places as the place of occurrence of the external cause; R29.6 Repeated falls
CPT/HCPCS: 0241U-QW; 36415; 70450-TC; 71045-TC-FY; 72125-TC; 80053; 80307; 82607; 82962; 83735; 84100; 84443; 84484; 85025; 87040; 93005; 93010; 97116-GP; 97161-GP; 99285-25; G0378

== ENCOUNTER 2022-10-23 08:12 | Inpatient (IN) | payer OTHER ==
[2022-10-23] MEDS ORDERED: morphine CARPU-JECT 4 MG/1 ML DISP.SYRIN IVPUSH ONE (09:11)
[2022-10-23] MEDS ORDERED: levETIRAcetam 500 MG/5 ML ORAL SOLUTION (UNIT-DOSE CUPS) PO ONE (09:13)
[2022-10-23] MEDS ORDERED: morphine SULFATE 4 MG/ML VIAL ONE (09:16)
[2022-10-23] MEDS ORDERED: levETIRAcetam 500 MG TABLET (FP) PO ONE (09:16)
[2022-10-23] MEDS ORDERED: LORazepam 2 MG/ML SDV VIAL IM ONE (09:27)
[2022-10-23] MEDS ORDERED: morphine CARPU-JECT 2 MG/1 ML DISP.SYRIN SQ ONE (09:28)
[2022-10-23 10:06] LABS: BASO % 0.5 % (0-2.0); EOS % 0.3 % (0-4.5); HEMATOCRIT 43.4 % (35.4-49); HEMOGLOBIN 14.3 GM/dL (11.7-16.9); MCH 34.2 pg (25.7-33.7); MCHC 33.1 g/dl (32.0-35.9); MEAN CELL VOLUME 103.2 fl (80-96); MONO % 11.9 % (3.8-10.2); NEUT % 72.3 % (42.8-82.8); PLATELET COUNT 161 10^3/uL (134-434); RDW 14.4 % (11.9-15.9); WHITE BLOOD COUNT 6.1 K/mm3 (4.0-10.0)
[2022-10-23 10:37] LABS: ALBUMIN 3.9 g/dl (3.4-5.0)
[2022-10-23 10:41] LABS: BILIRUBIN,TOTAL 0.6 mg/dL (0.2-1); TOT PROT 7.4 g/dl (6.4-8.2)
[2022-10-23 10:44] LABS: BLOOD UREA NITROGEN 8.8 mg/dL (7-18); CREATININE 0.6 mg/dL (0.55-1.3)
[2022-10-23] MEDS ORDERED: HYDROmorphone HCL CARPU-JECT 2 MG/1 ML DISP.SYRIN IVPUSH ONE (11:53)
[2022-10-23] MEDS ORDERED: HYDROmorphone HCl 2 MG/ML VIAL ONE (11:53)
[2022-10-23] MEDS ORDERED: LORazepam 2 MG/ML SDV VIAL IVPUSH ONE ×3 (13:00→17:02)
[2022-10-23] MEDS ORDERED: CEFTRIAXONE 1,000 MG in DEXTROSE 5%-WATER - 50 ML IVPB ONE (14:26)
[2022-10-23] MEDS ORDERED: AZITHROMYCIN IVPB 500 MG in DEXTROSE 5%-WATER - 250 ML IVPB ONE (14:26)
[2022-10-23] MEDS ORDERED: AZITHROMYCIN IVPB 500 MG/250 ML BAG IVPB ONE (15:01)
[2022-10-23] MEDS ORDERED: CEFTRIAXONE 1 GM/50 ML BAG ONE (15:01)
[2022-10-23] MEDS ORDERED: LORazepam 2 MG/ML SDV VIAL IVPB SCH (17:00)
[2022-10-23] MEDS: LACTATED RINGERS SOLUTION 1,000 ML IV SCH (17:52)
[2022-10-23] MEDS: LORazepam 2 MG/ML SDV VIAL IVPB SCH ×2 (17:52→23:05)
[2022-10-23] MEDS ORDERED: levETIRAcetam 500 MG/5 ML ORAL SOLUTION (UNIT-DOSE CUPS) PO SCH (18:00)
[2022-10-23] MEDS: AMPICILLIN NA/SULBACTAM NA 1.5 GM in SODIUM CHLORIDE 100 ML IVPB SCH (18:54)
[2022-10-23] MEDS ORDERED: LIDOCAINE 5% TOPICAL PATCH ONE (21:44)
[2022-10-23] MEDS: LIDOCAINE 5% TOPICAL PATCH TP SCH (21:45)
[2022-10-23] MEDS: MAG HYDROX/AL HYDROX/SIMETH 30 ML UNIT-DOSE CUP PO SCH (22:04)
[2022-10-23] MEDS: LIDOCAINE PATCH REMOVAL MC SCH (22:04)
[2022-10-23 22:38] LABS: COCAINE, UR NEGATIVE (NEGATIVE); METHADONE, UR NEGATIVE (NEGATIVE); PHENCYCLIDINE,URINE NEGATIVE (NEGATIVE); URINE BARBITURATES NEGATIVE (NEGATIVE); URINE BENZODIAZEPINES NEGATIVE (NEGATIVE)
[2022-10-23 22:40] LABS: OPIATES, URI POSITIVE (NEGATIVE); URINE AMPHETAMINES NEGATIVE (NEGATIVE)
[2022-10-23] MEDS: lamoTRIgine 100 MG TABLET PO SCH (22:54)
[2022-10-23] MEDS: levETIRAcetam 500 MG/5 ML INJECTION VIAL IVPB SCH (22:55)
[2022-10-24] MEDS: MAG HYDROX/AL HYDROX/SIMETH 30 ML UNIT-DOSE CUP PO SCH ×5 (02:10→23:25)
[2022-10-24] MEDS: AMPICILLIN NA/SULBACTAM NA 1.5 GM in SODIUM CHLORIDE 100 ML IVPB SCH ×3 (03:00→19:16)
[2022-10-24 03:35] VITALS: BMI 22.8
[2022-10-24] MEDS: LORazepam 2 MG/ML SDV VIAL IVPB SCH ×4 (05:40→23:35)
[2022-10-24] MEDS: levETIRAcetam 500 MG/5 ML INJECTION VIAL IVPB SCH ×3 (05:41→17:52)
[2022-10-24] MEDS ORDERED: levETIRAcetam 500 MG/5 ML ORAL SOLUTION (UNIT-DOSE CUPS) PO SCH ×2 (06:00→12:00)
[2022-10-24] MEDS: lamoTRIgine 100 MG TABLET PO SCH (06:12)
[2022-10-24 08:00] LABS: BASO % 0.7 % (0-2.0); EOS % 1.6 % (0-4.5); HEMATOCRIT 35.7 % (35.4-49); HEMOGLOBIN 12.1 GM/dL (11.7-16.9); LYMPH % 27.9 % (8-40); MCH 35.1 pg (25.7-33.7); MEAN CELL VOLUME 103.2 fl (80-96); MEAN PLT VOLUME 10.6 fl (7.5-11.1); MONO % 17.2 % (3.8-10.2); NEUT % 52.6 % (42.8-82.8); PLATELET COUNT 109 10^3/uL (134-434); RBC 3.45 M/mm3 (4.00-5.60); RDW 14.5 % (11.9-15.9)
[2022-10-24 08:21] LABS: ALBUMIN 3.2 g/dl (3.4-5.0); BLOOD UREA NITROGEN 8.7 mg/dL (7-18); CALCIUM 8.6 mg/dL (8.5-10.1); MAGNESIUM 1.6 mg/dL (1.8-2.4)
[2022-10-24 08:24] LABS: CREATININE 0.5 mg/dL (0.55-1.3); PHOSPHOROUS 3.4 mg/dL (2.5-4.9)
[2022-10-24 08:25] LABS: TOT PROT 6.2 g/dl (6.4-8.2)
[2022-10-24] MEDS: KETOROLAC TROMETHAMINE 15 MG/ML VIAL IVPUSH PRN (08:44)
[2022-10-24] MEDS: THIAMINE HCL 100 MG TABLET (FP) PO SCH (13:46)
[2022-10-24] MEDS: LIDOCAINE 5% TOPICAL PATCH TP SCH (13:47)
[2022-10-24] MEDS: FOLIC ACID 1 MG TABLET (FP) PO SCH (13:47)
[2022-10-24] MEDS: ENOXAPARIN NA (PORCINE) 40 MG/0.4 ML DISP.SYRIN SQ SCH (13:49)
[2022-10-24] MEDS: LAMOTRIGINE 100 MG, LAMOTRIGINE 50 MG PO SCH ×2 (14:03→21:25)
[2022-10-24] MEDS ORDERED: LORazepam 2 MG/ML SDV VIAL IVPUSH ONE (17:00)
[2022-10-24] MEDS: LIDOCAINE PATCH REMOVAL MC SCH (21:25)
[2022-10-24] MEDS: LACTATED RINGERS SOLUTION 1,000 ML IV SCH (23:25)
[2022-10-25] MEDS: AMPICILLIN NA/SULBACTAM NA 1.5 GM in SODIUM CHLORIDE 100 ML IVPB SCH ×3 (01:55→18:03)
[2022-10-25] MEDS: KETOROLAC TROMETHAMINE 15 MG/ML VIAL IVPUSH PRN ×4 (01:58→20:00)
[2022-10-25] MEDS: MAG HYDROX/AL HYDROX/SIMETH 30 ML UNIT-DOSE CUP PO SCH ×3 (06:27→17:59)
[2022-10-25] MEDS: LORazepam 2 MG/ML SDV VIAL IVPB SCH ×4 (06:27→23:40)
[2022-10-25] MEDS: LAMOTRIGINE 100 MG, LAMOTRIGINE 50 MG PO SCH ×3 (06:28→21:54)
[2022-10-25] MEDS: levETIRAcetam 500 MG/5 ML INJECTION VIAL IVPB SCH ×3 (07:32→18:55)
[2022-10-25] MEDS: THIAMINE HCL 100 MG TABLET (FP) PO SCH (09:55)
[2022-10-25] MEDS: ENOXAPARIN NA (PORCINE) 40 MG/0.4 ML DISP.SYRIN SQ SCH (09:55)
[2022-10-25] MEDS: FOLIC ACID 1 MG TABLET (FP) PO SCH (09:55)
[2022-10-25] MEDS: LIDOCAINE 5% TOPICAL PATCH TP SCH (10:27)
[2022-10-25 10:46] LABS: BASO % 0.6 % (0-2.0); EOS % 3.1 % (0-4.5); HEMATOCRIT 34.3 % (35.4-49); INR 1.14 (0.83-1.09); LYMPH % 24.1 % (8-40); MCH 35.9 pg (25.7-33.7); MCHC 35.1 g/dl (32.0-35.9); MEAN CELL VOLUME 102.1 fl (80-96); MEAN PLT VOLUME 10.4 fl (7.5-11.1); MONO % 15.6 % (3.8-10.2); NEUT % 56.6 % (42.8-82.8); PLATELET COUNT 103 10^3/uL (134-434); PROTHROMBIN TIME (PATIENT) 13.2 SEC (9.7-13.0); RBC 3.36 M/mm3 (4.00-5.60); RDW 13.8 % (11.9-15.9); WHITE BLOOD COUNT 3.3 K/mm3 (4.0-10.0)
[2022-10-25 11:05] LABS: CALCIUM 8.6 mg/dL (8.5-10.1)
[2022-10-25 11:06] LABS: ALBUMIN 3.2 g/dl (3.4-5.0); BLOOD UREA NITROGEN 4.2 mg/dL (7-18)
[2022-10-25 11:08] LABS: CREATININE 0.4 mg/dL (0.55-1.3)
[2022-10-25 11:10] LABS: BILIRUBIN,TOTAL 1.4 mg/dL (0.2-1); TOT PROT 6.2 g/dl (6.4-8.2)
[2022-10-25 11:13] LABS: ALBUMIN 3.2 g/dl (3.4-5.0)
[2022-10-25 11:16] LABS: BILIRUBIN,DIRECT 0.5 mg/dL (0.0-0.2)
[2022-10-25 11:18] LABS: BILIRUBIN,TOTAL 1.2 mg/dL (0.2-1); TOT PROT 6.2 g/dl (6.4-8.2)
[2022-10-25] MEDS ORDERED: AMPICILLIN NA/SULBACTAM NA 1.5 GM VIAL ONE (17:53)
[2022-10-25] MEDS: LIDOCAINE PATCH REMOVAL MC SCH (21:54)
[2022-10-26] MEDS: AMPICILLIN NA/SULBACTAM NA 1.5 GM in SODIUM CHLORIDE 100 ML IVPB SCH ×2 (02:05→10:22)
[2022-10-26] MEDS: MAG HYDROX/AL HYDROX/SIMETH 30 ML UNIT-DOSE CUP PO SCH ×4 (02:07→17:12)
[2022-10-26] MEDS: LORazepam 2 MG/ML SDV VIAL IVPB SCH ×2 (05:20→11:40)
[2022-10-26] MEDS: KETOROLAC TROMETHAMINE 15 MG/ML VIAL IVPUSH PRN ×3 (05:21→22:53)
[2022-10-26] MEDS ORDERED: POTASSIUM CHLORIDE TABS 20 MEQ TABLET.ER (FP) PO ONE (06:11)
[2022-10-26] MEDS ORDERED: MAGNESIUM SULF 50% (8.12 MEQ/2 ML-1 GM VIAL) IVPB ONE ×3 (06:12→08:30)
[2022-10-26] MEDS: levETIRAcetam 500 MG/5 ML INJECTION VIAL IVPB SCH ×3 (07:00→17:15)
[2022-10-26] MEDS: LAMOTRIGINE 100 MG, LAMOTRIGINE 50 MG PO SCH ×3 (07:06→22:53)
[2022-10-26 08:44] LABS: ALBUMIN 3.1 g/dl (3.4-5.0)
[2022-10-26 08:46] LABS: BILIRUBIN,DIRECT 0.4 mg/dL (0.0-0.2)
[2022-10-26 08:49] LABS: BILIRUBIN,TOTAL 0.9 mg/dL (0.2-1); TOT PROT 6.2 g/dl (6.4-8.2)
[2022-10-26] MEDS: THIAMINE HCL 100 MG TABLET (FP) PO SCH (09:46)
[2022-10-26] MEDS: FOLIC ACID 1 MG TABLET (FP) PO SCH (09:46)
[2022-10-26] MEDS: ENOXAPARIN NA (PORCINE) 40 MG/0.4 ML DISP.SYRIN SQ SCH (09:47)
[2022-10-26] MEDS: LIDOCAINE 5% TOPICAL PATCH TP SCH (09:48)
[2022-10-26] MEDS: LIDOCAINE PATCH REMOVAL MC SCH (22:53)
[2022-10-26] MEDS: NAPH,MB-DB/K PH,MBDB POWDER PACKET PO SCH (22:53)
[2022-10-27] MEDS: MAG HYDROX/AL HYDROX/SIMETH 30 ML UNIT-DOSE CUP PO SCH ×4 (00:46→18:20)
[2022-10-27] MEDS: LAMOTRIGINE 100 MG, LAMOTRIGINE 50 MG PO SCH ×3 (05:29→22:34)
[2022-10-27] MEDS: levETIRAcetam 500 MG/5 ML INJECTION VIAL IVPB SCH ×2 (05:29→12:09)
[2022-10-27] MEDS ORDERED: INSULIN (LEVEMIR) 100 UNITS/ML UNITS SQ ONE (06:31)
[2022-10-27] MEDS: FOLIC ACID 1 MG TABLET (FP) PO SCH (09:03)
[2022-10-27] MEDS: ENOXAPARIN NA (PORCINE) 40 MG/0.4 ML DISP.SYRIN SQ SCH (09:03)
[2022-10-27] MEDS: THIAMINE HCL 100 MG TABLET (FP) PO SCH (09:03)
[2022-10-27] MEDS: LIDOCAINE 5% TOPICAL PATCH TP SCH (09:04)
[2022-10-27] MEDS: NAPH,MB-DB/K PH,MBDB POWDER PACKET PO SCH (09:04)
[2022-10-27 09:08] LABS: EOS % 2.5 % (0-4.5); HEMATOCRIT 39.7 % (35.4-49); HEMOGLOBIN 13.6 GM/dL (11.7-16.9); LYMPH % 31.1 % (8-40); MCH 35.2 pg (25.7-33.7); MCHC 34.3 g/dl (32.0-35.9); MEAN CELL VOLUME 102.8 fl (80-96); MEAN PLT VOLUME 10.6 fl (7.5-11.1); MONO % 15.4 % (3.8-10.2); PLATELET COUNT 195 10^3/uL (134-434); RBC 3.86 M/mm3 (4.00-5.60); RDW 13.8 % (11.9-15.9); WHITE BLOOD COUNT 4.4 K/mm3 (4.0-10.0)
[2022-10-27 09:25] LABS: CALCIUM 9.2 mg/dL (8.5-10.1)
[2022-10-27 09:26] LABS: ALBUMIN 3.6 g/dl (3.4-5.0); BLOOD UREA NITROGEN 3.1 mg/dL (7-18); MAGNESIUM 2.2 mg/dL (1.8-2.4)
[2022-10-27 09:29] LABS: BILIRUBIN,DIRECT 0.4 mg/dL (0.0-0.2); CREATININE 0.5 mg/dL (0.55-1.3); PHOSPHOROUS 3.2 mg/dL (2.5-4.9)
[2022-10-27 09:30] LABS: TOT PROT 7.2 g/dl (6.4-8.2)
[2022-10-27 09:31] LABS: BILIRUBIN,TOTAL 0.9 mg/dL (0.2-1)
[2022-10-27] MEDS: KETOROLAC TROMETHAMINE 15 MG/ML VIAL IVPUSH PRN (13:12)
[2022-10-27] MEDS ORDERED: levETIRAcetam 500 MG/5 ML ORAL SOLUTION (UNIT-DOSE CUPS) PO SCH ×2 (18:00→22:00)
[2022-10-27] MEDS: levETIRAcetam 500 MG/5 ML ORAL SOLUTION (UNIT-DOSE CUPS) PO SCH (22:34)
[2022-10-27] MEDS: LIDOCAINE PATCH REMOVAL MC SCH (22:35)
[2022-10-28] MEDS: KETOROLAC TROMETHAMINE 15 MG/ML VIAL IVPUSH PRN ×2 (00:56→21:38)
[2022-10-28] MEDS: MAG HYDROX/AL HYDROX/SIMETH 30 ML UNIT-DOSE CUP PO SCH ×5 (00:56→23:30)
[2022-10-28] MEDS: LAMOTRIGINE 100 MG, LAMOTRIGINE 50 MG PO SCH ×3 (05:15→21:37)
[2022-10-28] MEDS ORDERED: levETIRAcetam 500 MG/5 ML ORAL SOLUTION (UNIT-DOSE CUPS) PO SCH (07:00)
[2022-10-28] MEDS: THIAMINE HCL 100 MG TABLET (FP) PO SCH (09:37)
[2022-10-28] MEDS: FOLIC ACID 1 MG TABLET (FP) PO SCH (09:37)
[2022-10-28] MEDS: levETIRAcetam 500 MG/5 ML ORAL SOLUTION (UNIT-DOSE CUPS) PO SCH ×3 (09:37→21:37)
[2022-10-28] MEDS: ENOXAPARIN NA (PORCINE) 40 MG/0.4 ML DISP.SYRIN SQ SCH (09:38)
[2022-10-28] MEDS: LIDOCAINE 5% TOPICAL PATCH TP SCH (09:38)
[2022-10-28 10:54] LABS: HEMATOCRIT 36.5 % (35.4-49); HEMOGLOBIN 12.5 GM/dL (11.7-16.9); MCHC 34.1 g/dl (32.0-35.9); MEAN CELL VOLUME 102.4 fl (80-96); MEAN PLT VOLUME 10.2 fl (7.5-11.1); PLATELET COUNT 172 10^3/uL (134-434); RBC 3.56 M/mm3 (4.00-5.60); RDW 14.1 % (11.9-15.9)
[2022-10-28 11:28] LABS: BLOOD UREA NITROGEN 9.6 mg/dL (7-18); CALCIUM 9.3 mg/dL (8.5-10.1)
[2022-10-28 11:31] LABS: CREATININE 0.6 mg/dL (0.55-1.3)
[2022-10-28 21:47] VITALS: RESP 16
[2022-10-28] MEDS: LIDOCAINE PATCH REMOVAL MC SCH (23:28)
[2022-10-29] MEDS: LAMOTRIGINE 100 MG, LAMOTRIGINE 50 MG PO SCH (06:00)
[2022-10-29] MEDS: MAG HYDROX/AL HYDROX/SIMETH 30 ML UNIT-DOSE CUP PO SCH ×2 (06:44→12:34)
[2022-10-29 07:51] LABS: MCH 35.3 pg (25.7-33.7); MCHC 34.2 g/dl (32.0-35.9); MEAN CELL VOLUME 103.1 fl (80-96); MEAN PLT VOLUME 10.5 fl (7.5-11.1); PLATELET COUNT 196 10^3/uL (134-434); RBC 3.68 M/mm3 (4.00-5.60); WHITE BLOOD COUNT 4.4 K/mm3 (4.0-10.0)
[2022-10-29 08:59] VITALS: BP 114/77; PULSE 68; TEMP 98.3
[2022-10-29 09:04] LABS: BLOOD UREA NITROGEN 11.5 mg/dL (7-18); CALCIUM 9.2 mg/dL (8.5-10.1)
[2022-10-29 09:05] LABS: MAGNESIUM 2.2 mg/dL (1.8-2.4)
[2022-10-29 09:07] LABS: CREATININE 0.7 mg/dL (0.55-1.3)
[2022-10-29 09:08] LABS: PHOSPHOROUS 3.6 mg/dL (2.5-4.9)
[2022-10-29] MEDS: LIDOCAINE 5% TOPICAL PATCH TP SCH (09:22)
[2022-10-29] MEDS: FOLIC ACID 1 MG TABLET (FP) PO SCH (09:23)
[2022-10-29] MEDS: levETIRAcetam 500 MG/5 ML ORAL SOLUTION (UNIT-DOSE CUPS) PO SCH ×2 (09:23)
[2022-10-29] MEDS: THIAMINE HCL 100 MG TABLET (FP) PO SCH (09:23)
[2022-10-29] MEDS: ENOXAPARIN NA (PORCINE) 40 MG/0.4 ML DISP.SYRIN SQ SCH (09:23)
== END 2022-10-29 13:00 | disposition home or self-care (01) | DRG 53 ==
LOC: JER 08:12 → JERBED 15:46 → J6S 10-24 02:47
PROVIDERS: ADMIT Internal Medicine; ATTEND Internal Medicine
DX: G40.909 Epilepsy, unspecified, not intractable, without status epilepticus (principal); F10.139 Alcohol abuse with withdrawal, unspecified; J98.11 Atelectasis; F10.129 Alcohol abuse with intoxication, unspecified; F39 Unspecified mood [affective] disorder; D69.6 Thrombocytopenia, unspecified; K70.10 Alcoholic hepatitis without ascites; K21.9 Gastro-esophageal reflux disease without esophagitis; K22.89 Other specified disease of esophagus; M62.830 Muscle spasm of back; Z59.00 Homelessness unspecified; E87.6 Hypokalemia; R07.81 Pleurodynia; G89.29 Other chronic pain
CPT/HCPCS: 0241U-QW; 36415; 70450-TC; 71046-TC-FY; 71101-TC-RT-FY; 71275-TC; 72125-TC; 74150-TC; 74220-TC-FY; 80048; 80053; 80076; 80177; 80307; 82728; 83516; 83540; 83550; 83735; 84100; 85025; 85027; 85610; 86038; 86140; 86705; 86708; 86803; 87340; 87517; 93005; 93010; 94010; 97116-GP; 97161-GP; 99285-25

== ENCOUNTER 2022-11-02 11:48 | Emergency (ER) | payer OTHER ==
[2022-11-02 12:20] VITALS: BP 105/68; RESP 18; TEMP 98.1; BMI 24.3
[2022-11-02] MEDS ORDERED: DIPHTH,PERTUSS(ACELL),TET 0.5 ML DISP.SYRIN IM ONE ×2 (15:07→15:17)
[2022-11-02 18:39] VITALS: PULSE 94
== END 2022-11-02 20:00 | disposition home or self-care (01) ==
LOC: JER 11:48
PROC: 0HQ1XZZ Repair Face Skin, External Approach (ICD-10-PCS; principal; 2022-11-02)
DX: S01.81XA Laceration without foreign body of other part of head, initial encounter (principal); F10.10 Alcohol abuse, uncomplicated; W01.0XXA Fall on same level from slipping, tripping and stumbling without subsequent striking against object, initial encounter
CPT/HCPCS: 12002-25; 70450-TC; 70486-TC; 72125-TC; 72128-TC; 72131-TC; 93005; 93010; 99285-25

== ENCOUNTER 2022-11-24 21:51 | Inpatient (IN) | payer OTHER ==
[2022-11-24 21:55] VITALS: BMI 25.6
[2022-11-24] MEDS ORDERED: diazePAM CARPU-JECT 10 MG/2 ML DISP.SYRIN IVPUSH ONE ×2 (22:08→22:28)
[2022-11-24] MEDS ORDERED: diazePAM CARPU-JECT 10 MG/2 ML DISP.SYRIN ONE (22:12)
[2022-11-24] MEDS ORDERED: THIAMINE HCL 200 MG/2 ML VIAL IVPB ONE (22:23)
[2022-11-24] MEDS ORDERED: SODIUM CHLORIDE 0.9% 500 ML INFUS.BAG IV ONE (22:26)
[2022-11-24] MEDS ORDERED: FOLIC ACID 1 MG TABLET (FP) PO ONE (22:28)
[2022-11-24] MEDS ORDERED: THIAMINE HCL 200 MG/2 ML VIAL ONE (22:31)
[2022-11-24] MEDS ORDERED: FOLIC ACID 1 MG TABLET (FP) ONE (22:31)
[2022-11-24] MEDS ORDERED: LORazepam 2 MG/ML SDV VIAL IVPUSH ONE ×2 (22:33→23:03)
[2022-11-24 22:58] LABS: BASO % 3.1 % (0-2.0); EOS % 1.8 % (0-4.5); HEMATOCRIT 41.3 % (35.4-49); LYMPH % 50.6 % (8-40); MCH 34.3 pg (25.7-33.7); MEAN CELL VOLUME 100.9 fl (80-96); MEAN PLT VOLUME 9.7 fl (7.5-11.1); MONO % 18.6 % (3.8-10.2); NEUT % 25.9 % (42.8-82.8); PLATELET COUNT 89 10^3/uL (134-434); RBC 4.09 M/mm3 (4.00-5.60); RDW 14.3 % (11.9-15.9); WHITE BLOOD COUNT 2.9 K/mm3 (4.0-10.0)
[2022-11-24] MEDS ORDERED: MIDAZOLAM HCL 2 MG/2 ML SINGLE DOSE VIAL ONE (23:00)
[2022-11-24] MEDS ORDERED: MIDAZOLAM HCL 2 MG/2 ML SINGLE DOSE VIAL IVPUSH ONE (23:00)
[2022-11-24 23:06] LABS: INR 1.12 (0.83-1.09)
[2022-11-24 23:18] LABS: LACTIC ACID 4.6 mmol/L (0.4-2.0)
[2022-11-24 23:21] LABS: ALBUMIN 4.2 g/dl (3.4-5.0); BLOOD UREA NITROGEN 7.6 mg/dL (7-18); MAGNESIUM 1.5 mg/dL (1.8-2.4)
[2022-11-24 23:24] LABS: CREATININE 0.6 mg/dL (0.55-1.3)
[2022-11-24 23:26] LABS: BILIRUBIN,TOTAL 1.1 mg/dL (0.2-1); TOT PROT 7.6 g/dl (6.4-8.2)
[2022-11-24] MEDS ORDERED: MAGNESIUM SULF 50% (8.12 MEQ/2 ML-1 GM VIAL) IVPB ONE (23:27)
[2022-11-24] MEDS ORDERED: chlordiazePOXIDE HCL 25 MG CAPSULE PO ONE (23:29)
[2022-11-25] MEDS ORDERED: chlordiazePOXIDE HCL 25 MG CAPSULE ONE (00:21)
[2022-11-25] MEDS ORDERED: MAGNESIUM SULFATE IN WATER 2 GM/50 ML IVPB IVPB ONE ×2 (00:21→05:05)
[2022-11-25] MEDS ORDERED: DEXTROSE 5%-NORMAL SALINE 1,000 ML IV ONE (00:36)
[2022-11-25] MEDS ORDERED: diazePAM CARPU-JECT 10 MG/2 ML DISP.SYRIN IVPUSH ONE ×2 (01:36→02:54)
[2022-11-25] MEDS ORDERED: diazePAM CARPU-JECT 10 MG/2 ML DISP.SYRIN ONE ×2 (01:43→02:55)
[2022-11-25] MEDS ORDERED: MAGNESIUM SULF 50% (8.12 MEQ/2 ML-1 GM VIAL) IVPB ONE (03:53)
[2022-11-25 04:11] LABS: LACTIC ACID 3.5 mmol/L (0.4-2.0)
[2022-11-25] MEDS ORDERED: levETIRAcetam 500 MG/5 ML INJECTION VIAL IVPB ONE (04:56)
[2022-11-25] MEDS ORDERED: LORazepam 1 MG TABLET ONE (05:04)
[2022-11-25] MEDS: levETIRAcetam 500 MG/5 ML ORAL SOLUTION (UNIT-DOSE CUPS) PO SCH ×2 (05:18→11:54)
[2022-11-25] MEDS: LORazepam 1 MG TABLET PO SCH ×3 (05:18→17:15)
[2022-11-25] MEDS ORDERED: lamoTRIgine 100 MG TABLET ONE (05:20)
[2022-11-25] MEDS ORDERED: lamoTRIgine 25 MG TABLET ONE (05:21)
[2022-11-25] MEDS: lamoTRIgine 100 MG TABLET PO SCH ×3 (05:30→22:00)
[2022-11-25] MEDS: FOLIC ACID 1 MG TABLET (FP) PO SCH (10:31)
[2022-11-25] MEDS: THIAMINE HCL 200 MG/2 ML VIAL IVPB SCH (10:31)
[2022-11-25] MEDS ORDERED: LORazepam 2 MG/ML SDV VIAL IVPUSH PRN (12:38)
[2022-11-25] MEDS: D5-NS + 20 MEQ KCL - 20 MEQ/1,000 ML INFUS.BAG IV SCH (14:26)
[2022-11-25] MEDS ORDERED: levETIRAcetam 500 MG/5 ML ORAL SOLUTION (UNIT-DOSE CUPS) PO SCH (18:00)
[2022-11-25 19:08] LABS: PH,URINE 8.5 (5.0-8.0); URINE APPEARANCE CLOUDY; URINE BILIRUBIN NEGATIVE (NEGATIVE); URINE COLOR YELLOW; URINE GLUCOSE (UA) TRACE (NEGATIVE); URINE KETONE NEGATIVE (NEGATIVE); URINE LEUK ESTERASE NEGATIVE (NEGATIVE); URINE NITRITE NEGATIVE (NEGATIVE); URINE PROTEIN NEGATIVE (NEGATIVE)
[2022-11-25] MEDS: LORazepam 1 MG TABLET PO PRN (21:27)
[2022-11-25] MEDS: FAMOTIDINE 20 MG/50 ML IVPB 20 MG/50 ML MG IVPB SCH (22:00)
[2022-11-26] MEDS: D5-NS + 20 MEQ KCL - 20 MEQ/1,000 ML INFUS.BAG IV SCH ×2 (01:46→15:15)
[2022-11-26] MEDS: LORazepam 1 MG TABLET PO SCH ×3 (05:41→11:48)
[2022-11-26] MEDS: levETIRAcetam 500 MG/5 ML ORAL SOLUTION (UNIT-DOSE CUPS) PO SCH ×2 (07:56→12:24)
[2022-11-26] MEDS: lamoTRIgine 100 MG TABLET PO SCH ×3 (07:56→23:13)
[2022-11-26] MEDS: FAMOTIDINE 20 MG/50 ML IVPB 20 MG/50 ML MG IVPB SCH ×3 (09:09→23:57)
[2022-11-26] MEDS: FOLIC ACID 1 MG TABLET (FP) PO SCH (09:10)
[2022-11-26 09:28] LABS: HEMATOCRIT 38.4 % (35.4-49); HEMOGLOBIN 13.4 GM/dL (11.7-16.9); MCH 34.6 pg (25.7-33.7); MCHC 34.8 g/dl (32.0-35.9); MEAN CELL VOLUME 99.3 fl (80-96); MEAN PLT VOLUME 10.1 fl (7.5-11.1); PLATELET COUNT 74 10^3/uL (134-434); RBC 3.87 M/mm3 (4.00-5.60); RDW 14.1 % (11.9-15.9); WHITE BLOOD COUNT 2.3 K/mm3 (4.0-10.0)
[2022-11-26] MEDS: LORazepam 1 MG TABLET PO PRN ×2 (09:50→22:41)
[2022-11-26 09:56] LABS: ALBUMIN 3.6 g/dl (3.4-5.0); BLOOD UREA NITROGEN 3.4 mg/dL (7-18); MAGNESIUM 1.8 mg/dL (1.8-2.4)
[2022-11-26 09:58] LABS: CREATININE 0.5 mg/dL (0.55-1.3); PHOSPHOROUS 1.8 mg/dL (2.5-4.9)
[2022-11-26 09:59] LABS: BILIRUBIN,TOTAL 1.2 mg/dL (0.2-1); CALCIUM 8.8 mg/dL (8.5-10.1); TOT PROT 6.9 g/dl (6.4-8.2)
[2022-11-26] MEDS ORDERED: THIAMINE HCL 100 MG TABLET (FP) PO SCH (10:00)
[2022-11-26] MEDS ORDERED: FOLIC ACID 1 MG TABLET (FP) PO SCH (10:00)
[2022-11-26] MEDS: THIAMINE HCL 200 MG/2 ML VIAL IVPB SCH (10:35)
[2022-11-26] MEDS ORDERED: levETIRAcetam 500 MG/5 ML ORAL SOLUTION (UNIT-DOSE CUPS) PO SCH (22:00)
[2022-11-26] MEDS: LAMOTRIGINE 100 MG, LAMOTRIGINE 50 MG PO SCH (22:39)
[2022-11-26 23:29] VITALS: RESP 19
[2022-11-27] MEDS ORDERED: LORazepam 0.5 MG TABLET PO PRN
[2022-11-27] MEDS ORDERED: LORazepam 0.5 MG TABLET PO SCH (05:00)
[2022-11-27] MEDS: LAMOTRIGINE 100 MG, LAMOTRIGINE 50 MG PO SCH (06:39)
[2022-11-27 08:47] VITALS: BP 132/76; PULSE 80; TEMP 98.1
[2022-11-28] MEDS ORDERED: LORazepam 0.5 MG TABLET PO ONE (05:00)
== END 2022-11-27 09:27 | disposition left against medical advice (07) | DRG 53 ==
LOC: JER 21:51 → JERBED 11-25 01:46 → J6S 11-25 06:57
PROVIDERS: ADMIT Internal Medicine
DX: G40.909 Epilepsy, unspecified, not intractable, without status epilepticus (principal); F10.239 Alcohol dependence with withdrawal, unspecified; G93.89 Other specified disorders of brain; K21.9 Gastro-esophageal reflux disease without esophagitis; F39 Unspecified mood [affective] disorder; Z87.820 Personal history of traumatic brain injury; Z59.00 Homelessness unspecified
CPT/HCPCS: 0241U-QW; 36415; 70450-TC; 80053; 80177; 80307; 81003; 82962; 83605; 83735; 84100; 85025; 85610; 85730; 87086; 87536; 93005; 93010; 99285-25

== ENCOUNTER 2022-12-02 09:25 | Emergency (ER) | payer OTHER ==
[2022-12-02 09:46] VITALS: BP 121/70; PULSE 87; RESP 18; TEMP 97.2; BMI 24.3
== END 2022-12-02 10:02 | disposition home or self-care (01) ==
LOC: JERFT 09:25
DX: Z48.02 Encounter for removal of sutures (principal)
CPT/HCPCS: 99281-25

== ENCOUNTER 2022-12-20 10:07 | Emergency (ER) | payer OTHER ==
[2022-12-20 10:19] VITALS: BP 129/78; PULSE 96; RESP 17; TEMP 97.9; BMI 25.8
== END 2022-12-20 13:09 | disposition home or self-care (01) ==
LOC: JER 10:07
DX: F10.20 Alcohol dependence, uncomplicated (principal)
CPT/HCPCS: 99283-25; 99284-25

== ENCOUNTER 2022-12-20 12:38 | Inpatient (IN) | payer OTHER ==
[2022-12-20 13:47] VITALS: BMI 22.5
[2022-12-20] MEDS ORDERED: chlordiazePOXIDE HCL 25 MG CAPSULE PO PRN (14:43)
[2022-12-20] MEDS ORDERED: guaiFENesin 600 MG TABLET.ER (FP) PO PRN (14:43)
[2022-12-20] MEDS ORDERED: BENZONATATE 200 MG CAPSULE PO PRN (14:43)
[2022-12-20] MEDS ORDERED: BISMUTH SUBSALICYLATE 262 MG/15 ML BTL PO PRN (14:43)
[2022-12-20] MEDS ORDERED: ONDANSETRON *ODT* 4 MG TABLET SL PRN (14:43)
[2022-12-20] MEDS ORDERED: POLYETHYLENE GLYCOL (HEALTHYLAX) 3350 17 GM PACKET PO PRN (14:43)
[2022-12-20] MEDS ORDERED: hydrOXYzine PAMOATE 25 MG CAPSULE (FP) PO PRN (14:43)
[2022-12-20] MEDS ORDERED: METHOCARBAMOL 500 MG TABLET PO PRN (14:43)
[2022-12-20] MEDS ORDERED: BENZOCAINE/MENTHOL (CHLORASEPTIC ) LOZENGE MM PRN (14:43)
[2022-12-20] MEDS ORDERED: MAGNESIUM HYDROX 2400MG/30ML ORAL SUSPENSION 30 ML CUP PO PRN (14:43)
[2022-12-20] MEDS ORDERED: IBUPROFEN 400 MG TABLET (FP) PO PRN (14:43)
[2022-12-20] MEDS ORDERED: DICYCLOMINE HCL 10 MG CAPSULE PO PRN (14:43)
[2022-12-20] MEDS ORDERED: MAG HYDROX/AL HYDROX/SIMETH 30 ML UNIT-DOSE CUP PO PRN (14:43)
[2022-12-20] MEDS ORDERED: LOPERAMIDE HCL 2 MG CAPSULE PO PRN (14:43)
[2022-12-20] MEDS ORDERED: ACETAMINOPHEN 325 MG TABLET (FP) PO PRN (14:43)
[2022-12-20] MEDS ORDERED: IBUPROFEN 600 MG TABLET (FP) PO PRN (14:43)
[2022-12-20] MEDS ORDERED: chlordiazePOXIDE HCL 25 MG CAPSULE ONE (17:12)
[2022-12-20] MEDS: chlordiazePOXIDE HCL 25 MG CAPSULE PO SCH ×2 (17:21→22:37)
[2022-12-20] MEDS ORDERED: ONDANSETRON *ODT* 4 MG TABLET ONE (17:25)
[2022-12-20] MEDS ORDERED: levETIRAcetam 500 MG/5 ML ORAL SOLUTION (UNIT-DOSE CUPS) PO SCH (18:00)
[2022-12-20] MEDS: levETIRAcetam 500 MG/5 ML ORAL SOLUTION (UNIT-DOSE CUPS) PO SCH (19:15)
[2022-12-20] MEDS ORDERED: PATIENT'S OWN MEDICATION (NON-FORMULARY) (Lamotrigine [Lamotrigine] 150 MG Tablet) PO SCH (22:15)
[2022-12-20] MEDS: MELATONIN 5 MG TABLETS PO SCH (22:36)
[2022-12-20] MEDS: THIAMINE HCL 100 MG TABLET (FP) PO SCH (22:36)
[2022-12-20] MEDS: LAMOTRIGINE 100 MG, LAMOTRIGINE 50 MG PO SCH (23:55)
[2022-12-21] MEDS: chlordiazePOXIDE HCL 25 MG CAPSULE PO SCH ×4 (05:25→22:00)
[2022-12-21] MEDS: LAMOTRIGINE 100 MG, LAMOTRIGINE 50 MG PO SCH ×3 (05:26→21:59)
[2022-12-21] MEDS: levETIRAcetam 500 MG/5 ML ORAL SOLUTION (UNIT-DOSE CUPS) PO SCH ×3 (05:27→17:57)
[2022-12-21] MEDS ORDERED: levETIRAcetam 500 MG/5 ML ORAL SOLUTION (UNIT-DOSE CUPS) PO SCH ×2 (06:00→12:00)
[2022-12-21] MEDS ORDERED: PRENATAL VITAMINS W/ FOLIC ACID TABLET (FP) PO SCH (10:00)
[2022-12-21 11:59] LABS: HEMATOCRIT 36.3 % (35.4-49); HEMOGLOBIN 12.5 GM/dL (11.7-16.9); MCH 35.1 pg (25.7-33.7); MCHC 34.6 g/dl (32.0-35.9); MEAN CELL VOLUME 101.5 fl (80-96); MEAN PLT VOLUME 10.3 fl (7.5-11.1); PLATELET COUNT 84 10^3/uL (134-434); RBC 3.58 M/mm3 (4.00-5.60); RDW 16.4 % (11.9-15.9)
[2022-12-21 12:06] LABS: ALBUMIN 3.8 g/dl (3.4-5.0); BLOOD UREA NITROGEN 10.4 mg/dL (7-18); CALCIUM 8.6 mg/dL (8.5-10.1)
[2022-12-21 12:09] LABS: CREATININE 0.6 mg/dL (0.55-1.3); TOT PROT 6.9 g/dl (6.4-8.2)
[2022-12-21] MEDS ORDERED: POTASSIUM CHLORIDE ORAL LIQUID 20 MEQ/15 ML PO ONE ×2 (14:09→15:43)
[2022-12-21] MEDS: THIAMINE HCL 100 MG TABLET (FP) PO SCH (22:00)
[2022-12-21] MEDS: MELATONIN 5 MG TABLETS PO SCH (22:00)
[2022-12-21] MEDS: POTASSIUM CHLORIDE ORAL LIQUID 20 MEQ/15 ML PO SCH (22:41)
[2022-12-22] MEDS: chlordiazePOXIDE HCL 25 MG CAPSULE PO SCH ×4 (05:20→22:48)
[2022-12-22] MEDS: LAMOTRIGINE 100 MG, LAMOTRIGINE 50 MG PO SCH ×3 (05:20→22:47)
[2022-12-22] MEDS: levETIRAcetam 500 MG/5 ML ORAL SOLUTION (UNIT-DOSE CUPS) PO SCH ×3 (05:22→18:14)
[2022-12-22] MEDS: POTASSIUM CHLORIDE ORAL LIQUID 20 MEQ/15 ML PO SCH ×2 (10:25→22:48)
[2022-12-22] MEDS: FOLIC ACID 1 MG TABLET (FP) PO SCH (10:28)
[2022-12-22] MEDS: MULTIVIT-MINERALS ORAL LIQUID PO SCH (10:55)
[2022-12-22 11:16] LABS: CALCIUM 9.2 mg/dL (8.5-10.1)
[2022-12-22 11:17] LABS: ALBUMIN 3.8 g/dl (3.4-5.0)
[2022-12-22 11:20] LABS: CREATININE 0.6 mg/dL (0.55-1.3)
[2022-12-22 11:21] LABS: BILIRUBIN,TOTAL 1.9 mg/dL (0.2-1)
[2022-12-22 11:32] LABS: HEMATOCRIT 37.7 % (35.4-49); HEMOGLOBIN 12.9 GM/dL (11.7-16.9); MCH 34.9 pg (25.7-33.7); MCHC 34.1 g/dl (32.0-35.9); MEAN CELL VOLUME 102.5 fl (80-96); MEAN PLT VOLUME 10.2 fl (7.5-11.1); PLATELET COUNT 77 10^3/uL (134-434); RBC 3.68 M/mm3 (4.00-5.60); RDW 16.3 % (11.9-15.9)
[2022-12-22 11:36] LABS: WHITE BLOOD COUNT 1.8 K/mm3 (4.0-10.0)
[2022-12-22] MEDS: MELATONIN 5 MG TABLETS PO SCH (22:48)
[2022-12-22] MEDS: THIAMINE HCL 100 MG TABLET (FP) PO SCH (22:48)
[2022-12-23] MEDS ORDERED: chlordiazePOXIDE HCL 10 MG CAPSULE PO PRN
[2022-12-23] MEDS: chlordiazePOXIDE HCL 10 MG CAPSULE PO SCH ×4 (05:43→22:26)
[2022-12-23] MEDS: levETIRAcetam 500 MG/5 ML ORAL SOLUTION (UNIT-DOSE CUPS) PO SCH ×3 (05:43→17:28)
[2022-12-23] MEDS: LAMOTRIGINE 100 MG, LAMOTRIGINE 50 MG PO SCH ×3 (05:43→22:26)
[2022-12-23] MEDS: POTASSIUM CHLORIDE ORAL LIQUID 20 MEQ/15 ML PO SCH ×2 (10:31→22:26)
[2022-12-23] MEDS: FOLIC ACID 1 MG TABLET (FP) PO SCH (10:32)
[2022-12-23] MEDS: MULTIVIT-MINERALS ORAL LIQUID PO SCH (10:33)
[2022-12-23 10:37] LABS: HEMATOCRIT 40.1 % (35.4-49); HEMOGLOBIN 13.7 GM/dL (11.7-16.9); MCH 34.8 pg (25.7-33.7); MCHC 34.1 g/dl (32.0-35.9); MEAN CELL VOLUME 101.9 fl (80-96); MEAN PLT VOLUME 10.9 fl (7.5-11.1); PLATELET COUNT 88 10^3/uL (134-434); RBC 3.93 M/mm3 (4.00-5.60); RDW 16.6 % (11.9-15.9); WHITE BLOOD COUNT 2.6 K/mm3 (4.0-10.0)
[2022-12-23 11:22] LABS: ANISOCYTOSIS 0; MACROCYTOSIS 1+
[2022-12-23] MEDS: MELATONIN 5 MG TABLETS PO SCH (22:26)
[2022-12-23] MEDS: THIAMINE HCL 100 MG TABLET (FP) PO SCH (22:26)
[2022-12-24] MEDS: levETIRAcetam 500 MG/5 ML ORAL SOLUTION (UNIT-DOSE CUPS) PO SCH ×3 (05:45→17:53)
[2022-12-24] MEDS: LAMOTRIGINE 100 MG, LAMOTRIGINE 50 MG PO SCH ×3 (05:46→21:04)
[2022-12-24] MEDS: chlordiazePOXIDE HCL 10 MG CAPSULE PO SCH ×2 (05:46→17:52)
[2022-12-24] MEDS: FOLIC ACID 1 MG TABLET (FP) PO SCH (10:13)
[2022-12-24] MEDS: MULTIVIT-MINERALS ORAL LIQUID PO SCH (10:14)
[2022-12-24] MEDS: MELATONIN 5 MG TABLETS PO SCH (21:04)
[2022-12-24] MEDS: THIAMINE HCL 100 MG TABLET (FP) PO SCH (21:04)
[2022-12-25] MEDS ORDERED: chlordiazePOXIDE HCL 10 MG CAPSULE PO ONE (05:00)
[2022-12-25] MEDS: LAMOTRIGINE 100 MG, LAMOTRIGINE 50 MG PO SCH (05:37)
[2022-12-25] MEDS: levETIRAcetam 500 MG/5 ML ORAL SOLUTION (UNIT-DOSE CUPS) PO SCH (05:37)
[2022-12-25 09:09] VITALS: BP 128/74; PULSE 79; RESP 16; TEMP 97.7
[2022-12-25] MEDS: MULTIVIT-MINERALS ORAL LIQUID PO SCH (10:23)
[2022-12-25] MEDS: FOLIC ACID 1 MG TABLET (FP) PO SCH (10:34)
== END 2022-12-25 10:51 | disposition home or self-care (01) | DRG 775 ==
LOC: YASAS 12:38 → Y3N 16:30
PROVIDERS: ADMIT Allergy & Immunology; ATTEND Surgery
PROC: HZ2ZZZZ Detoxification Services for Substance Abuse Treatment (ICD-10-PCS; principal; 2022-12-20)
DX: F10.230 Alcohol dependence with withdrawal, uncomplicated (principal); F43.10 Post-traumatic stress disorder, unspecified; D61.818 Other pancytopenia; E87.6 Hypokalemia; D72.819 Decreased white blood cell count, unspecified; R56.1 Post traumatic seizures; Z87.820 Personal history of traumatic brain injury; Z87.891 Personal history of nicotine dependence; Z91.81 History of falling; Z99.89 Dependence on other enabling machines and devices
CPT/HCPCS: 36415; 80053; 80177; 85025; 85027; 86780; C9803-CS; Q0162; U0003; U0005